=== PATIENT | female | born 1975 | race Caucasian/White ===

== ENCOUNTER → 2018-08-27 | Outpatient (CLI) | payer OTHER ==
[~2018-08-27] MED LIST: IOPAMIDOL (ISOVUE 370) 100 ML BTL IV ONE; METOPROLOL TARTRATE 5 MG/5 ML INJ ONE
== END ==
LOC: CIMAGING 08:24
PROVIDERS: ATTEND Internal Medicine Cardiovascular Disease
DX: I87.8 Other specified disorders of veins (principal); I95.9 Hypotension, unspecified
CPT/HCPCS: 82565-PO; Q9967